=== PATIENT | female | born 1985 | race Caucasian/White ===

== ENCOUNTER 2020-08-06 04:24 | Emergency (ER) | payer MEDICAID ==
[~2020-08-06] VITALS: Ht 167.6 cm; Wt 76.0 kg
[~2020-08-06 04:24] MED LIST: IBUP-2030; [UNRECOGNIZED DRUG - CODE]
[2020-08-06] MEDS ORDERED: KETOROLAC 30MG/ML VIAL IV STA (04:49)
[2020-08-06 05:01] LABS: BASOPHILS % 0.4 % (0.0-2.0); EOSINOPHILS % 1.4 % (0.0-5.0); HEMATOCRIT. 32.3 % (36.0-48.0); HEMOGLOBIN. 9.8 g/dL (12.0-16.0); LYMPHOCYTES % 24.5 % (20.0-50.0); MEAN CORPUSCULAR HEMOGLOBIN 21.2 pg (28.0-32.0); MEAN CORPUSCULAR VOLUME 69.9 fL (81.0-99.0); MEAN PLATELET VOLUME 7.5 fl (7.4-10.4); MONOCYTES % 8.3 % (2.0-8.0); NEUTROPHILS % 65.4 % (40.0-76.0); PLATELET 325 x1000/uL (130-400); RED BLOOD CELL COUNT 4.62 mill/uL (4.2-5.4); RED CELL DISTRIBUTION WIDTH 19.6 % (11.6-14.6)
[2020-08-06 05:28] LABS: PLATELET ESTIMATE NORMAL
[2020-08-06 06:06] LABS: CLARITY URINE CLEAR (CLEAR); COLOR URINE YELLOW (YELLOW); KETONES URINE NEGATIVE (NEGATIVE); LEUKOCYTE ESTERASE URINE 2+ (NEGATIVE); NITRITE URINE NEGATIVE (NEGATIVE); OCCULT BLOOD URINE NEGATIVE (NEGATIVE); PROTEIN URINE NEGATIVE (NEGATIVE); SPECIFIC GRAVITY URINE 1.007 (1.005-1.030); UROBILINOGEN URINE 0.2 E.U./dL (0.2-1.0)
[2020-08-06 06:12] LABS: PROTHROMBIN TIME 10.4 sec (9.6-11.0)
[2020-08-06 06:16] LABS: *AMPHETAMINES SCREEN URINE NEGATIVE (NEGATIVE); *BARBITURATES SCREEN URINE NEGATIVE (NEGATIVE); *BENZODIAZEPINES SCREEN URINE NEGATIVE (NEGATIVE); *COCAINE SCREEN URINE NEGATIVE (NEGATIVE); CANNABINOID URINE SCREEN NEGATIVE (NEGATIVE)
[2020-08-06 06:17] LABS: METHADONE URINE SCREEN NEGATIVE (NEGATIVE); OPIATES URINE SCREEN NEGATIVE (NEGATIVE); PHENCYCLIDINE URINE SCREEN NEGATIVE (NEGATIVE)
[2020-08-06] MEDS ORDERED: CEFTRIAXONE 1 G PREMIX 50 ML IV ONE (07:45)
[2020-08-06 08:55] LABS: CHLORIDE 108 mEq/L (98-107)
[2020-08-06 08:59] LABS: ETHANOL BLOOD < 10 mg/dL
[2020-08-06 09:46] VITALS: BP 109/66
[2020-08-06] MEDS ORDERED: NITROFURANTOIN 100MG M/M CAPSULE PO ONE (10:00)
[2020-08-06] MEDS ORDERED: NITR-87 MT (10:01)
== END 2020-08-06 10:21 | disposition home or self-care (01) ==
LOC: ER 04:24
DX: N39.0 Urinary tract infection, site not specified (principal)
CPT/HCPCS: 36415; 74176; 76700; 80053; 80305; 80320; 81003; 81025; 83690; 85025; 85610; 96365; 96375; 99285; J0696; J1885; G0480

== ENCOUNTER 2020-11-30 11:58 | Emergency (ER) | payer MEDICAID ==
[~2020-11-30] VITALS: Ht 165.1 cm; Wt 70.0 kg
[~2020-11-30 11:58] MED LIST changes: +NITR-87 MT
[2020-11-30 12:06] VITALS: BP 122/86
== END 2020-11-30 16:03 | disposition left against medical advice (07) ==
LOC: ER 12:14
DX: Z53.21 Procedure and treatment not carried out due to patient leaving prior to being seen by health care provider (principal); R10.9 Unspecified abdominal pain
CPT/HCPCS: 93005